=== PATIENT | female | born 1985 | race Caucasian/White ===

== ENCOUNTER 2019-07-22 08:00 | Outpatient (CLI) | payer OTHER ==
[2019-07-22 21:55] LABS: TRICHOMONAS VAGINALIS DNA NEGATIVE (NEGATIVE)
== END 2019-07-22 23:59 | disposition home or self-care (01) ==
LOC: LAB.R 08:00
PROVIDERS: ATTEND Obstetrics & Gynecology
DX: Z36.85 Encounter for antenatal screening for Streptococcus B (principal)
CPT/HCPCS: 87491; 87591; 87661; 87797

== ENCOUNTER 2019-07-30 14:00 | Outpatient (CLI) | payer OTHER ==
--- NOTE | 2019-08-01 10:35 | Ultrasound Report ---
Reason: UTERINE SIZE LESS THAN DATES Procedure Date: 07/30/2019 Accession Number: [id number] / [id number] Procedure: US - OB F/U or Repeat CPT Code: Final Report FULL RESULT: EXAM: FOLLOW-UP OBSTETRICAL ULTRASOUND EXAM DATE: 07/30/2019 02:40 PM. CLINICAL HISTORY: UTERINE SIZE LESS THAN DATES. COMPARISON: None. TECHNIQUE: Real-time sonographic evaluation of the fetus performed by the yarn preparation supervisor. Multiple risk control field representative static images were saved for review. DATING: Established EGA 37 weeks 5 days with EULOGIO 08/15/2019 based on physician stated dating. EGA 38 weeks 2 days with EULOGIO 08/11/2019 based on the current ultrasound. GENERAL EVALUATION [place] . Cardiac activity: 141 bpm. movement: Visualized. Presentation: Cephalic. Placenta: Anterior position. Amniotic fluid: Normal. LORNE 11.7 cm. MVP 3.9 cm. BIOMETRY Bi-Parietal Diameter (BPD): 9.3 cm, 37 weeks 6 days. Head Circumference (HC): 33.9 cm, 39 weeks 0 days. Abdominal Circumference (AC): 35.3 cm, 39 weeks 2 days. Femur Length (FL): 7.2 cm, 36 weeks 5 days. Estimated Weight: 3507 g, 79th percentile for 37 weeks 5 days. ANATOMY Not evaluated on this exam. MATERNAL STRUCTURES Cervical length measures 3.8 cm on transabdominal images. IMPRESSION: 1. [place] live intrauterine with gestational age 37 weeks 5 days based on stated dating. 2. Estimated weight is within expected limits for assigned dating. RADIA
== END 2019-07-30 14:01 | disposition home or self-care (01) ==
LOC: DI 14:00
PROVIDERS: ATTEND Advanced Practice Midwife
DX: O26.843 Uterine size-date discrepancy, third trimester (principal); Z3A.37 37 weeks gestation of pregnancy
CPT/HCPCS: 76816

== ENCOUNTER 2019-08-16 01:00 | Inpatient (IN) | payer OTHER ==
[2019-08-16] MEDS ORDERED: SODIUM CHLORIDE FLUSH 0.9% 10 ML SYRINGE IVP PRN (01:59)
[2019-08-16] MEDS ORDERED: ACETAMINOPHEN 325 MG TABLET PO PRN (01:59)
[2019-08-16] MEDS ORDERED: OXYTOCIN/SODIUM CHLORIDE 500 ML IV SCH (02:00)
[2019-08-16] MEDS ORDERED: LACTATED RINGERS 1,000 ML IV SCH ×2 (02:00→14:00)
[2019-08-16] MEDS: SODIUM CHLORIDE FLUSH 0.9% 10 ML SYRINGE IVP SCH ×2 (02:00→17:57)
--- NOTE | 2019-08-16 02:07 | HISTORY & PHYSICAL EXAMINATION ---
Admit History - Visit Reason Visit Reason: Contractions (33yo GBS neg A+ at 40w1d by LMP c/w first trimester scan here with c/o contractions beginning last evening and increasing. +bloody show, no fluid leak or nehemiah bleeding. Reports normal activity. No n/v/f/c or dysuria. No other complaints.) - : 3 Parity: 1 Premature: 0 Ectopic: 0 : 0 Care: positive: [facility] Risk/History: positive: None Complications This : positive: Other (Hypothyroidism; euthyroid 07/21) Smoking Status: Never smoker - Mother's Labs Mother's Blood Type: positive: A Mother's RH: positive: Positive GBS: positive: Group B Step Negative Rubella Status: positive: Immune (HIV/HepB/RPR NR GC/chlam neg glucola 106 PAP NILM) Meds/Allgy - Home Medications Home Medications: Ambulatory Orders Medication Instructions Recorded Confirmed Thyroid,Pork [[place] Thyroid] 15 mg PO DAILY 08/09/19 08/16/19 Pnv 102/Iron/Folate/Dha [Vitafol 1 tab PO DAILY 08/16/19 08/16/19 Fe Plus Softgel] - Allergies Allergies/Adverse Reactions: Allergies Allergy/AdvReac Type Severity Reaction Status Date / Time fish derived Allergy Severe Anaphylaxis Verified 08/09/19 15:16 Penicillins AdvReac Emesis Verified 08/16/19 01:57 prednisone AdvReac Anxiety Verified 08/16/19 01:57 promethazine [From Phenergan] AdvReac Anxiety Verified 08/16/19 01:57 tdap Allergy Edema Uncoded 08/16/19 01:57 Review of Systems - All Other Systems All Other Systems: reports: Reviewed and negative (Except as noted) Physical - Abdominal Exam Vital Signs: Temp Pulse Resp BP Pulse Ox 97.9 F 76 17 121/81 H 100 08/16/19 01:06 08/16/19 01:06 08/16/19 01:06 08/16/19 01:06 08/16/19 01:06 Contraction Frequency (min/apart): q8-15 Contraction Intensity: positive: Mild to moderate Uterine Resting Tone: positive: Soft - Monitoring Heart Rate Baseline: 120's Strip Review: positive: Category I - Presentation Presentation: positive: Vertex (by bedside scan) - Vaginal Exam Membranes: positive: Membranes intact Dilation (in cm): 3cm Effacement (%): 80 Station: positive: -1 Cervical Position: positive: Midposition - Speculum Exam Speculum Exam Performed: positive: No Plan for Labor - Plan For Labor Plan for Labor: 33yo at 40w1d admitted in prodromal labor. GBS neg Planning epidural Send CBC, T&S IV fluids Consider augmentation. Pt would like expectant management for now Vertex by scan; EFW 3400gm Expect Exam - Exam Vital Signs: Vital Signs (72 hours) 08/16/19 01:06 Temperature 97.9 F Heart Rate [ 76 Monitoring electrodes] Respiratory 17 Rate Blood Pressure 121/81 H [Left Brachial artery] O2 Saturation 100 General: Alert, Oriented x3, Cooperative Lungs: Clear to auscultation, Normal air movement Cardiovascular: Regular rate, No murmurs Abdomen: Normal bowel sounds, No tenderness (Gravid, S=D) Extremities: No edema Skin: No rashes Neurological: Normal gait, Normal speech Psych/Mental Status: Mental status NL
[2019-08-16 02:28] LABS: HGB - HEMOGLOBIN 11.5 g/dL (12.0-16.0); MEAN CORPUSCULAR HEMOGLOBIN 29.4 pg (27.0-31.0); MEAN CORPUSCULAR HGB CONC 33.5 g/dL (32.0-36.0); MEAN CORPUSCULAR VOLUME 87.7 fL (81.0-99.0); MEAN PLATELET VOLUME 12.8 fL (7.9-10.8); RED BLOOD COUNT 3.91 10^6/uL (4.20-5.40); RED CELL DISTRIBUTION WIDTH 12.9 % (12.0-15.0); WHITE BLOOD COUNT 8.9 x10^3/uL (4.8-10.8)
[2019-08-16] MEDS ORDERED: LACTATED RINGERS 1,000 ML IV ONE (02:29)
[2019-08-16] MEDS: LACTATED RINGERS 1,000 ML IV SCH ×3 (02:30→09:54)
--- NOTE | 2019-08-16 03:12 | PROVIDER PROGRESS NOTE ---
Subjective - Prog Note Date Prog Note Date: 08/16/19 Prog Note Time: 03:11 - Subjective Subjective: Contractions now rare, very mild. Pt declines augmentation. VSS afeb Category 1 tracing Labs reviewed, unremarkable VE deferred. A/P Pitocin ordered, pt declines for now. Continue expectant management. Objective - Vital Signs/Intake & Output Vital Signs: Vital Signs x48h Temp Pulse Resp BP Pulse Ox 08/16/19 01:06 97.9 F 76 17 121/81 H 100 Intake & Output: Intake & Output 08/13/19 08/14/19 08/15/19 08/16/19 23:59 23:59 23:59 23:59 Intake Total 10 Balance 10 - Lab Results Fish Bones: 08/16/19 02:20 Other Labs: Lab Results x24hrs 08/16/19 08/16/19 Range/Units 02:20 02:20 WBC 8.9 (4.8-10.8) x10^3/uL RBC 3.91 L (4.20-5.40) 10^6/uL Hgb 11.5 L (12.0-16.0) g/dL Hct 34.3 L (37.0-47.0) % MCV 87.7 (81.0-99.0) fL MCH 29.4 (27.0-31.0) pg MCHC 33.5 (32.0-36.0) g/dL RDW 12.9 (12.0-15.0) % Plt Count 200 (130-450) 10^3/uL MPV 12.8 H (7.9-10.8) fL Blood Type A POSITIVE Antibody Screen NEGATIVE
--- NOTE | 2019-08-16 05:34 | PROVIDER PROGRESS NOTE ---
Subjective - Subjective Subjective: Thinks she wants epidural now although contractions still infrequent and palpate mild. VSS afeb Category 1 Cervix unchanged A/P Discussed options other than epidural as she is not yet in labor. Also discussed starting pitocin. She still declines augmentation, accepts fentanyl for now. Objective - Vital Signs/Intake & Output Vital Signs: Vital Signs x48h Temp Pulse Resp BP Pulse Ox 08/16/19 01:06 97.9 F 76 17 121/81 H 100 Intake & Output: Intake & Output 08/13/19 08/14/19 08/15/19 08/16/19 23:59 23:59 23:59 23:59 Intake Total 10 Balance 10 - Lab Results Fish Bones: 08/16/19 02:20 Other Labs: Lab Results x24hrs 08/16/19 08/16/19 Range/Units 02:20 02:20 WBC 8.9 (4.8-10.8) x10^3/uL RBC 3.91 L (4.20-5.40) 10^6/uL Hgb 11.5 L (12.0-16.0) g/dL Hct 34.3 L (37.0-47.0) % MCV 87.7 (81.0-99.0) fL MCH 29.4 (27.0-31.0) pg MCHC 33.5 (32.0-36.0) g/dL RDW 12.9 (12.0-15.0) % Plt Count 200 (130-450) 10^3/uL MPV 12.8 H (7.9-10.8) fL Blood Type A POSITIVE Antibody Screen NEGATIVE
[2019-08-16] MEDS ORDERED: fentaNYL 100 MCG/2 ML VIAL ONE (05:35)
[2019-08-16] MEDS: fentaNYL 100 MCG/2 ML VIAL IVP PRN ×2 (05:40→11:45)
[2019-08-16] MEDS ORDERED: miSOPROStoL 100 MCG TABLET BC SCH (11:30)
--- NOTE | 2019-08-16 11:30 | PROVIDER PROGRESS NOTE ---
Labor Progress Note - Uterine Monitoring Contraction Frequency (min/apart): intermittent Contraction Intensity: positive: Mild to moderate Uterine Resting Tone: positive: Soft - Monitoring Monitor Mode: positive: External ultrasound Heart Rate Baseline: 115 Heart Rate Variability: positive: Moderate (6-25 bmp) Accelerations: positive: Present, 15x15 Decelerations: positive: None - Vaginal Exam Dilation (in cm): 3 Effacement (%): 80 Station: -2 Cervical Position: Midposition - Labor Progress Note Labor Progress Note/Additional Text: 33 yo at 40+1 wga here with prodromal labor Scheduled for IOL today No change in SVE Patient is now willing to undergo augmentation/induction Reviewed options Patient opts to have a single dose of miso 50 mcg BC to optimize pitocin response Anxious regarding discomfort and desires epidural OK for epidural once pitocin initiated Cat I tracing
[2019-08-16] MEDS ORDERED: LIDOCAINE-MPF 1% 30 ML VIAL ONE (13:16)
[2019-08-16] MEDS ORDERED: OXYTOCIN/SODIUM CHLORIDE 500 ML IV PRN (13:28)
--- NOTE | 2019-08-16 13:41 | ANESTHESIA ---
Pre-Anesthesia VS, & Labs - Diagnosis active labor - Procedure labor epidural Vital Signs: Temp Pulse Resp BP Pulse Ox 36.6 C 76 17 121/81 H 100 08/16/19 01:06 08/16/19 01:06 08/16/19 01:06 08/16/19 01:06 08/16/19 01:06 Height 5 ft 7 in Weight (kg) 81.647 kg - NPO >8 hours - Is Patient ?: Yes - Lab Results Current Lab Results: Laboratory Tests 08/16/19 02:20: WBC 8.9, RBC 3.91 L, Hgb 11.5 L, Hct 34.3 L, MCV 87.7, MCH 29.4, MCHC 33.5, RDW 12.9, Plt Count 200, MPV 12.8 H 08/16/19 02:20: Blood Type A POSITIVE, Antibody Screen NEGATIVE Fish Bones: 08/16/19 02:20 Home Medications and Allergies Home Medications: Ambulatory Orders Pnv 102/Iron/Folate/Dha [Vitafol Fe Plus Softgel] 1 tab PO DAILY 08/16/19 Active Medications Acetaminophen (Tylenol) 650 mg PO Q6H PRN PRN Reason: PAIN Fentanyl (Fentanyl) 100 mcg IVP Q2H PRN PRN Reason: PAIN Last Admin: 08/16/19 11:45 Dose: 100 mcg Oxytocin/Sodium Chloride (Pitocin/Sodium Chloride) 500 mls @ 1 mls/hr IV TITR DORA; Protocol Lactated Ringer's (Lr) 1,000 mls @ 250 mls/hr IV .Q4H [facility] Last Admin: 08/16/19 09:54 Dose: 250 mls/hr Sodium Chloride (Normal Saline Flush 0.9%) 10 ml IVP PRN PRN PRN Reason: NEEDED PER PROVIDER ORDERS Sodium Chloride (Normal Saline Flush 0.9%) 10 ml IVP 0100,0900,1700 [facility] Last Admin: 08/16/19 02:00 Dose: 10 ml Thyroid,Pork [[place] Thyroid] 15 mg PO DAILY 08/09/19 Pnv 102/Iron/Folate/Dha [Vitafol Fe Plus Softgel] 1 tab PO DAILY 08/16/19 Allergies/Adverse Reactions: Allergies Allergy/AdvReac Type Severity Reaction Status Date / Time fish derived Allergy Severe Anaphylaxis Verified 08/09/19 15:16 Penicillins AdvReac Emesis Verified 08/16/19 01:57 prednisone AdvReac Anxiety Verified 08/16/19 01:57 promethazine [From Phenergan] AdvReac Anxiety Verified 08/16/19 01:57 tdap Allergy Edema Uncoded 08/16/19 01:57 Anes History & Medical History - Anesthetic History Anesthesia Complications: reports: No previous complications Family history of Anesthesia Complications: Denies Family history of Malignant Hyperthermia: Denies - Medical History Cardiovascular: reports: None Pulmonary: reports: None Gastrointestinal: reports: None Urinary: reports: None Neuro: reports: None Musculoskeletal: reports: None Endocrine/Autoimmune: reports: None Smoking Status: Never smoker - Obstetrical History : 3 Parity: 1 Events: positive: None Complications: positive: Other (Hypothyroidism; euthyroid 07/21) Exam General: Alert, Oriented x3 Dental: WNL Mouth Opening: Greater than 4 Fingerbreadths Neck Mobility: Normal Mallampati classification: II Thyromental Distance: greater than 6 cm Cardiovascular: Regular rate Plan Anesthesia Type: Epidural Consent for Procedure(s) Verified and Reviewed: Yes Code Status: Attempt Resuscitation ASA classification: 2-Mild systemic disease Is this case an emergency?: No
[2019-08-16] MEDS ORDERED: ePHEDrine 50 MG/ML VIAL IVP PRN (13:42)
[2019-08-16] MEDS ORDERED: ONDANSETRON 4 MG/2 ML VIAL IVP PRN (13:42)
[2019-08-16] MEDS ORDERED: LACTATED RINGERS 500 ML IV ONE (13:42)
[2019-08-16] MEDS ORDERED: NALBUPHINE 10 MG/ML AMP IVP PRN (13:42)
[2019-08-16] MEDS ORDERED: diphenhydrAMINE INJ 50 MG/ML VIAL IVP PRN (13:42)
[2019-08-16] MEDS ORDERED: NALOXONE 0.4 MG/ML VIAL IVP PRN (13:42)
[2019-08-16] MEDS ORDERED: METOCLOPRAMIDE 10 MG/2 ML VIAL IVP PRN (13:42)
[2019-08-16] MEDS ORDERED: ACETAMINOPHEN 500 MG TABLET PO PRN (13:58)
[2019-08-16] MEDS ORDERED: DOCUSATE SODIUM 100 MG CAPSULE PO PRN (13:58)
[2019-08-16] MEDS ORDERED: ONDANSETRON ODT 4 MG TABLET TL PRN (13:58)
--- NOTE | 2019-08-16 14:01 | DELIVERY NOTE ---
Delivery Note - Labor Labor: positive: Other (Augmented by misoprostol) - Delivery Method Infant Delivery Method: positive: Spontaneous vaginal delivery - Presentation Presentation: positive: Vertex, Compound, Other (right shoulder posterior with right hand by face) - Nuchal Cord Nuchal Cord: positive: None - Anesthetic Anesthetic Type: - Amniotic Fluid Description Amniotic Fluid Description: positive: Clear - Laceration Laceration: positive: 1st degree - Delivery Outcome Delivery Outcome: positive: Livebirth - [place] : positive: Placed in direct skin contact with mother, Stimulated, Warmed, [place] used [place] sex: positive: Female - Cord Cord: positive: 3 vessels - Estimated Blood Loss Estimated Blood Loss (in cc): 150 - Post Delivery Events Post Delivery Events: positive: No post delivery events - Delivery Comments (Free Text/Narrative) Delivery Comments (Free Text/Narrative): STAGE I: Patient is a 33-year-old G3, P1 at 40+1 weeksEstimated gestational age who presented in early labor. She presented reporting spontaneous contractions starting about 2353. She was admitted and her initial exam was 3/-1. She opted for expectant management. She remained unchanged over 10 hours of his observation. She was given a single dose of misoprostol 50 mcg BC x1. Her contractions started rapidly after that and at 1236 she was 5 cm dilated. Immediately prior to the placement of the epidural, she was 8 cm dilated and underwent spontaneous rupture of membranes which was notable for passage of clear fluid, documented at 12:57. She requested an epidural which was placed at 1255. Immediately after placement of the epidural, she was noted to be completely dilated at +2 station. She is GBS negative and antibiotics were not indicated. Category 1 tracing throughout stage I labor. STAGE II: Patient pushed well for less than 30 minutes to deliver a viable female from vertex presentation at 13:28 presented in BANDAR/compound presentation with left shoulder anterior and right hand by infant's face. Infant delivered without difficulty to mother's abdomen. No nuchal cord was noted. Cord was clamped x2 and cut after pulsations had ceased. Apgars were 9 and 9 and weight is pending. STAGE III: Placenta delivered at 1333 with manual expression. It was examined and found to be intact. Perineum was examined and a small first-degree right periurethral laceration was noted. It was hemostatic with edges naturally well apposed; no repair was indicated. Total EBL was 150 cc. Procedure was well- tolerated without complication.
[2019-08-16] MEDS: IBUPROFEN 600 MG TABLET PO PRN ×2 (14:43→23:35)
--- NOTE | 2019-08-17 11:00 | PROVIDER PROGRESS NOTE ---
Subjective - Prog Note Date Prog Note Date: 08/17/19 Prog Note Time: 10:58 - Subjective Pt reports feeling: Improved (S/P rapid delivery. doing well. Not taking any Narcotics. breast feeding. Pain 0/10.) Objective - Vital Signs/Intake & Output Reviewed Vital Signs: Yes Vital Signs: Vital Signs x48h Temp Pulse Resp BP BP Pulse Ox 08/17/19 08:16 36.6 C 83 16 112/74 100 08/17/19 05:06 36.7 C 74 18 116/64 97 Intake & Output: Intake & Output 08/14/19 08/15/19 08/16/19 08/17/19 23:59 23:59 23:59 23:59 Intake Total 2460 1000 Output Total 1400 Balance 1060 1000 - Objective General Appearance: positive: No acute distress, Alert Abdomen: positive: Non-tender, Mass (U-1) Extremities: negative: Calf tenderness, Martní's sign/cords - Lab Results Fish Bones: 08/16/19 02:20 Assessment/Plan - Problem List (1) (spontaneous vaginal delivery) Impression: SP recovering well. reviewed contraception. Vasectomy Pain meds Motrai Reviewed breast feeding Send home.
--- NOTE | 2019-08-17 11:05 | Discharge Plan ---
Discharge Plan Problem Reviewed?: Yes Disposition: Home, Self Care Condition: Good Diet: Regular Activity Restrictions: pelvic rest Shower Restrictions: No Driving Restrictions: No Weight Bearing: Full Weight No Smoking: If you smoke, Please STOP! Call for help.
--- NOTE | 2019-08-17 11:33 | DISCHARGE SUMMARY ---
Physician: Carlos Herrera MD DATE OF ADMISSION: 08/16/2019 DATE OF DISCHARGE: 08/17/2019 ADMITTING DIAGNOSES 1. A 33-year-old . 2. 40 weeks 1 day. 3. Early labor. DISCHARGE DIAGNOSES 1. A 33-year-old . 2. 40 weeks 1 day. 3. Early labor. 4. Short first and second stage. PROCEDURES 1. Misoprostol cervical ripening. 2. Epidural. 3. Spontaneous vaginal delivery. PRESENTING HISTORY: Patient is a 33-year-old G3, P1 female who is A positive. She was 40.1 weeks EGA, compatible with first trimester ultrasound. She had contractions which started the evening before, increasing with time. She had a bloody show, but no leak of fluid. She has noted good activity. She had OB care started early in her . Her labs showed her to be group B strep negative, A positive. She was negative for all STI's checked, including HIV, hepatitis B, RPR, GC chlamydia. Her Glucola was 106. Her history is positive for having a history of being hypothyroidism and was placed on [place] Thyroid, vitamins. LABORATORIES: CBC on admission showed a white count of 8.6, hemoglobin was 11.5, hematocrit was 34.3, and platelets were 200. HOSPITAL COURSE: Patient was admitted and noted to be 3 cm. She was followed throughout the morning and did not show any progress at roughly 11 o'clock. Because of no further progress, she was given misoprostol 50 mcg. At that point, she started laboring quite quickly. She had an epidural placed for labor analgesia but at that point was noted to be complete and, following a very short second stage, she delivered a live female , vertex presentation. The had Apgars of 9 and 9. Placenta followed and her estimated blood loss was 150 mL. Post delivery, the patient has done remarkably well. She is only taking Motrin for pain control. We have discussed the issues of , we recommend it. She is aware that is not adequate contraception. She states her has had a vasectomy but has not had the semen analysis following. She is being discharged home today on Motrin as well as vitamins and Tylenol. We will do a phone followup in 1 week. We will also follow up in 6 weeks. Recommend in 6 weeks for pelvic rest. TD: 08/17/2019 11:16 ELPIDIO
[2019-08-17 12:06] VITALS: BP 111/58
--- NOTE | 2019-08-17 15:35 | Labor Flowsheet ---
Labor Flowsheet Datetime Report Generated by CPN: 08/17/2019 15:34 Datetime: 08/17/2019 11:58 VITAL SIGNS NBP Sys/Merary/Mean (mmHg): 111 : 58 : 71 Pulse: 68 Datetime: 08/17/2019 07:55 SpO2 (%): 100 Datetime: 08/16/2019 14:45 PAIN Pain Scale: 2 Pain Presence: Intermittent Pain Type: Cramping Pain Location: Abdomen Datetime: 08/16/2019 13:33 Stage of : Recovery Datetime: 08/16/2019 13:31 LaborFlag: Labor Datetime: 08/16/2019 13:28 Frequency (min): 1.5-2 Quality: Strong Duration (sec): 50-60 Pattern: Tachysystole: > 5 Contractions in 10 Minutes Resting Tone (Palpate): Relaxed FHR Baseline Rate : 115 Variability: Moderate 6-25 bpm Accelerations: 10X10 Decelerations: Variable Category: Category II Oxygen Method: Room Air Datetime: 08/16/2019 13:17 STAGE 2 Pushing: Urge to Push Pushing Position: Pushing with Contractions; Pushing Lithotomy Pushing Progress: Descent with Pushing Datetime: 08/16/2019 13:12 VAGINAL EXAM Dilatation (cm): 10.0 Exam by: Dr. McSorley Datetime: 08/16/2019 13:06 Epidural Procedure: Test Dose Datetime: 08/16/2019 13:00 UTERINE ACTIVITY Monitor Mode: External ASSESSMENT A Monitor Mode: External US Datetime: 08/16/2019 12:58 PROCEDURE TIME OUT Procedure Verify: Correct Patient Identity; Correct Side and Site are Marked; Accurate Procedure Co nsent Form; Agreement on Procedure to be Done; Correct Patient Position ANESTHESIA Anesthesia Plans: Epidural Epidural Positioning: Sitting Datetime: 08/16/2019 12:57 Effacement (%): 100 Station: 0 Membrane Status: Ruptured Membranes Rupture Method: Spontaneous Amniotic Fluid Color: Clear Amniotic Fluid Amount: Scant Amniotic Fluid Odor: Normal Datetime: 08/16/2019 12:55 COMMUNICATION Communication: Provider at Bedside Provider Notified (Name): M Aube, FLOOR WAXER Datetime: 08/16/2019 12:28 Communication Comments: Called for epidural placement Datetime: 08/16/2019 12:23 Pain Assessment Comments: Wants an epidural now Datetime: 08/16/2019 11:45 MEDICATIONS Analgesics/Sedatives: Fentanyl (mcg) @ 100 Datetime: 08/16/2019 11:35 Temperature (C): 36.9 Datetime: 08/16/2019 11:33 Cervical Ripening Agents: Cytotec @ 50 Patient Care Comments: IV fluids TKO'd Datetime: 08/16/2019 11:26 I/O Interventions: Up to BR Datetime: 08/16/2019 11:07 Vaginal Exam Comments: No change from Dr. Erber's exam Datetime: 08/16/2019 10:36 Monitor Interventions for FHR: Ultrasound Adjusted Datetime: 08/16/2019 10:02 Monitor Interventions for UA: Loving Adjusted Datetime: 08/16/2019 09:54 PATIENT CARE IV/Blood Work: New IV Bag Hung; IV Bag Number @ 3 Datetime: 08/16/2019 09:49 Respirations: 19 Datetime: 08/16/2019 09:38 Pain Coping: Breathing Through Contractions Comfort Measures: Breathing/Relaxation Datetime: 08/16/2019 08:00 MATERNAL ASSESSMENT Level of Consciousness: Alert DTR's/Clonus: DTRs 2+; No Clonus Headache: Denies Breath Sounds, Left: Clear and Equal Breath Sounds, Right: Clear and Equal Nausea/Vomiting: Denies RUQ Epigastric Pain: Denies Datetime: 08/16/2019 07:54 Temperature Route: Oral Datetime: 08/16/2019 06:45 Actions for Decelerations: Other Datetime: 08/16/2019 05:45 FHR Baseline Changes: No Baseline Change Datetime: 08/16/2019 04:46 Contraction Comments: pt. states she has had three ctx since getting in the [facility] Datetime: 08/16/2019 04:13 Comments: in jacuzzi Patient Position/Activity: High Fowlers Datetime: 08/16/2019 04:03 Pain Relief Measures: Comfort Measures Datetime: 08/16/2019 02:08 Pain Goal: 8
== END 2019-08-17 15:10 | disposition home or self-care (01) | DRG 807 ==
LOC: FBP 01:00 → WFO 01:00 → FBP 01:59
PROVIDERS: ADMIT Obstetrics & Gynecology; ATTEND Obstetrics & Gynecology
PROC: 10E0XZZ Delivery of Products of Conception, External Approach (ICD-10-PCS; principal; 2019-08-16)
PROC: 0HQ9XZZ Repair Perineum Skin, External Approach (ICD-10-PCS; 2019-08-16)
DX: O99.284 Endocrine, nutritional and metabolic diseases complicating childbirth (principal); Z37.0 Single live birth; E89.0 Postprocedural hypothyroidism; O32.6XX0 Maternal care for compound presentation, not applicable or unspecified; O70.0 First degree perineal laceration during delivery; Z3A.40 40 weeks gestation of pregnancy
CPT/HCPCS: 85027; 86850; 86900; 86901; 99213

== ENCOUNTER 2021-04-09 08:00 | Outpatient (CLI) | payer OTHER | END 2021-04-09 23:59 | LOC: LAB.N 08:00 | PROVIDERS: ATTEND Physician Assistant Medical | DX: U07.1 COVID-19 (principal) ==